=== PATIENT | female | born 1940 | race Hispanic/Latino ===

== ENCOUNTER 2017-05-01 21:50 | Inpatient (IN) | payer OTHER ==
[~2017-05-01] VITALS: Ht 154.9 cm; Wt 51.3 kg
[2017-05-01] MEDS ORDERED: VANCOMYCIN 1GM/NS 250 ML 250 ML IV ONE (22:15)
[2017-05-01] MEDS ORDERED: ONDANSETRON HCL INJ 2 MG/ML VIAL IV PRN (22:15)
[2017-05-01 22:18] VITALS: BP 152/69
[2017-05-01 22:45] VITALS: BP 152/69
[2017-05-01] MEDS ORDERED: SODIUM CHLORIDE 0.9% 250ML 250 ML ONE (22:57)
[2017-05-01] MEDS: SODIUM CHLORIDE 0.9% 1000ML 1,000 ML IV SCH (23:00)
[2017-05-02] VITALS (7 sets, daily range): BP systolic 117–150; BP diastolic 52–68
[2017-05-02] MEDS ORDERED: OMEPRAZOLE40 MG PO (03:08)
[2017-05-02] MEDS ORDERED: CETIRIZINE HCL10 MG PO (03:08)
[2017-05-02] MEDS ORDERED: LEVOTHYROXINE100 MC1 PO (03:08)
[2017-05-02] MEDS ORDERED: LOSARTAN POTAS100 MG PO (03:08)
[2017-05-02] MEDS: ALBUTEROL/IPRATROPIUM 3 ML NEB NEB PRN (04:55)
[2017-05-02] MEDS: PIPER-TAZ 3.375 GM 50 ML IV SCH ×4 (06:32→22:00)
[2017-05-02] MEDS: SODIUM CHLORIDE 0.9% 1000ML 1,000 ML IV SCH (08:15)
[2017-05-02] MEDS: OSELTAMIVIR PHOSPHATE 75 MG CAP PO SCH ×2 (09:00→16:18)
--- NOTE | 2017-05-02 11:09 | Diagnostic Imaging Report ---
EXAM: CT Chest WITHOUT contrast 05/02/2017 6:00 AM INDICATION: Positive flu\S\Pneumonia \S\[id number] \S\1008 \S\Y COMPARISON: None TECHNIQUE: Chest was scanned utilizing a multidetector helical scanner from the lung apex through the level of the adrenal glands without administration of IV contrast. Absence of intravenous contrast decreases sensitivity for detection of lymphadenopathy and vascular pathology. Coronal and sagittal reformations were obtained. Routine protocol was performed. IV CONTRAST: None COMPLICATIONS: None RADIATION DOSE: Total DLP: 330 mGy*cm Estimated effective dose: (DLP x 0.015 x size factor) mSv CTDIvol has been reviewed. It is below the limits set by the Radiation Protocol Committee (RPC). FINDINGS: LINES/ TUBES: None. LUNGS AND AIRWAYS: Parts of the pleural-based consolidation with few surrounding a smaller areas of groundglass opacities and septal thickening, better seen on series 3, image 21. The larger consolidation measures 2.9 x 1.5 cm. There are additional subcentimeter focal areas of groundglass opacities in the left upper lobe. Bibasilar consolidations with volume loss likely representing atelectasis. Right upper lobe bronchiectasis and peribronchial wall thickening. Bilateral interstitial edema. PLEURA: Small bilateral pleural effusions, right greater than left. HEART AND MEDIASTINUM: The thyroid gland is normal. No mediastinal, hilar or axillary lymphadenopathy. Cardiomegaly. There is no pericardial effusion. Severe calcifications of the mitral annulus. The main pulmonary artery is mildly enlarged measuring 3.2 cm in diameter. UPPER ABDOMEN: Cholecystectomy. BONES: Mild degenerative changes of the thoracic spine. SOFT TISSUES: Unremarkable. IMPRESSION: Bilateral upper lobes, right greater than left, focal areas of groundglass opacities with a large pleural-based part solid consolidation may relate to this patient influenza pneumonia. Recommend repeat daily chest x-ray and CT chest without contrast in 3-4 weeks. Cardiomegaly with bilateral interstitial edema and small pleural effusions. Signed by: Dr. Maria Luisa Siddiqui M.D. on 05/02/2017 11:05 AM
[2017-05-02] MEDS ORDERED: HYDRALAZINE HCL 25 MG TAB PO PRN (11:15)
--- NOTE | 2017-05-02 11:48 | History and Physical ---
CHIEF COMPLAINT: Influenza, pneumonia. HISTORY OF PRESENT ILLNESS: Patient is a very pleasant, 76-year-old female who has been ill for the past week or so. The patient has hypertension, hypothyroidism and reflux associated with also allergic rhinitis. She came to the hospital, and influenza was positive. The patient also has bibasilar pneumonia. The patient is otherwise stable. PAST MEDICAL HISTORY: Hypertension, hypothyroidism, reflux. PAST SURGICAL HISTORY: Total abdominal hysterectomy. SOCIAL HISTORY: Patient does not smoke or use alcohol. No recreational drugs. HOME MEDICATIONS: List reviewed. ALLERGIES: NO KNOWN ALLERGIES. REVIEW OF SYSTEMS: As mentioned. Cough and shortness breath. PHYSICAL EXAMINATION GENERAL: The patient is not in acute distress. He is awake. VITAL SIGNS: Temperature 98. Blood pressure 132/52. Pulse rate 80. Respirations 18. HEENT: Normocephalic, atraumatic. Sclerae are anicteric. NECK: Supple grossly. PULMONARY: Diminished breath sounds at bases with coarses. CARDIOVASCULAR: S1 and S2, regular rate and rhythm. ABDOMEN: Soft. EXTREMITIES: No cyanosis or edema. NEUROLOGIC: No focal deficit. LABORATORY: Pending. IMPRESSION 1. Influenza. 2. Bibasilar pneumonia on x-ray. 3. Shortness of breath. 4. Fever. PLAN: Nebulizer treatment and antibiotics. Continue with home medications when available. Tamiflu. We will monitor the patient closely. Job#: [id number]
[2017-05-02] MEDS: LEVOTHYROXINE SODIUM 100 MCG TAB PO SCH (13:30)
[2017-05-02] MEDS ORDERED: ENOXAPARIN SOD INJ 40 MG/0.4 ML SYR SC SCH (17:00)
--- NOTE | 2017-05-02 17:33 | Consultation ---
DATE OF CONSULTATION: May 02, 2017 PULMONARY CONSULTATION REASON FOR CONSULTATION: Shortness of breath and wheezing. HISTORY OF PRESENT ILLNESS: Ms. Chin is a 76-year-old female who presented with a 2-week history of cough and wheezing. Patient was admitted by Dr. Bassett. She reports that she has history of hypertension. As a young person, she was told that she has asthma. Dr. Bassett notes the patient was positive for influenza. The lab work was done, and it is in the chart possibly because of down time. The white count is 4000 and hemoglobin 13.7. She tested positive for flu A. She is having fevers, chills, arthralgias and myalgias. REVIEW OF SYSTEMS GENERAL: Was having fever and chills. HEAD: Denies any head trauma or head injury. ENT: Denies any earache. CVS: Denies any chest pain. RESPIRATORY: Shortness of breath and wheezing. GI: Denies any nausea or vomiting. OTHER: The rest of the review of systems are negative except as in HPI. PAST MEDICAL HISTORY: Hypertension, hypothyroidism. PAST SURGICAL HISTORY: Abdominal hysterectomy. FAMILY AND SOCIAL HISTORY: She is a lifelong nonsmoker. Does not smoke. Does not drink. PHYSICAL EXAMINATION VITALS: Temperature 99.4, pulse of 92, blood pressure 150/68, respiratory rate of 18. O2 sat 95% on 3 L. SKIN: Warm. Arthralgias, myalgias. GENERAL APPEARANCE: She is an elderly female in mild respiratory distress. GENERAL: She is awake and alert, following commands. Responding to questions appropriately. HEENT: Head is atraumatic and normocephalic. Pupils are reactive. NECK: Supple with no JVD. Thyroid not enlarged. CHEST: Wheezing bilaterally. HEART: S1 and S2 audible. ABDOMEN: Soft, nontender and nondistended. EXTREMITIES: No clubbing, cyanosis or edema. NEUROLOGIC: Awake and alert. LABORATORY DATA: Reviewed in the chart. Patient has influenza positive. CBC and BMP reviewed. CT of the chest was done, and I reviewed the films. It is showing evidence of multilobar infiltrates and pneumonia. Report shows she has bilateral upper lobe, right greater than left, ground-glass opacities. ASSESSMENT AND PLAN: A 76-year-old female with influenza and pneumonia and reactive airways. CURRENT PROBLEMS 1. Influenza and pneumonia. 2. Reactive airways. PLAN 1. Continue the patient on IV Zosyn and Tamiflu. 2. Nebulizer treatment. 3. If the patient's shortness of breath and wheezing gets worse, then we may need to add low-dose steroids. However, I will hold off on it for now. 4. Oxygen as needed. Discussed with the patient's family at bedside in detail. Thank you for this consult. Job#: [id number]
[2017-05-02] MEDS: GUAIFENESIN/CODEINE 10 ML CUP PO PRN (21:09)
[2017-05-03] VITALS (7 sets, daily range): BP systolic 105–166; BP diastolic 51–71
[2017-05-03] MEDS: ACETAMINOPHEN 325 MG TAB PO PRN ×2 (04:46→10:30)
[2017-05-03] MEDS: ALBUTEROL/IPRATROPIUM 3 ML NEB NEB PRN ×3 (04:55→19:15)
[2017-05-03] MEDS: SODIUM CHLORIDE 0.9% 1000ML 1,000 ML IV SCH ×3 (06:00→14:00)
[2017-05-03] MEDS: LEVOTHYROXINE SODIUM 100 MCG TAB PO SCH (06:01)
[2017-05-03] MEDS: PIPER-TAZ 3.375 GM 50 ML IV SCH (06:01)
[2017-05-03] MEDS ORDERED: PANTOPRAZOLE SOD 40 MG TABEC PO SCH (07:30)
[2017-05-03 07:37] LABS: BASOPHILS % 0.2 % (0.0-1.0); EOSINOPHILS % 0.2 % (0.0-6.0); HEMATOCRIT 32.2 % (34.2-44.1); HEMOGLOBIN 11.4 g/dL (12.0-16.0); LYMPHOCYTES # (AUTO) 0.9 (1.0-3.2); LYMPHOCYTES % 14.4 % (18.0-39.1); MEAN CORPUSCULAR HEMOGLOBIN 36.5 pg (28-32); MEAN CORPUSCULAR HGB CONC 35.4 g/dL (31-35); MEAN CORPUSCULAR VOLUME 103.2 fL (81-99); MONOCYTES # (AUTO) 0.7 (0.2-0.8); NEUTROPHILS # (AUTO) 4.9 (2.1-6.9); NEUTROPHILS % 74.6 % (38.7-80.0); RED BLOOD COUNT 3.12 x10e6/uL (3.6-5.1); RED CELL DISTRIBUTION WIDTH 14.5 % (11.7-14.4)
[2017-05-03 07:46] LABS: PLATELET COUNT 48 x10e3/uL (140-360)
[2017-05-03 07:52] LABS: ANION GAP 8.2 mmol/L (8-16); BLOOD UREA NITROGEN 12 mg/dL (7-26); BUN/CREATININE RATIO 15 (6-25); CALCIUM 7.5 mg/dL (8.4-10.2); CARBON DIOXIDE 18 mmol/L (22-29); CHLORIDE 113 mmol/L (98-107); CREATININE, SERUM 0.78 mg/dL (0.57-1.11); EST GLOMERULAR FILTRATION RATE > 60 ML/MIN (60-); GLUCOSE 89 mg/dL (74-118); POTASSIUM 3.2 mmol/L (3.5-5.1); SODIUM 136 mmol/L (136-145)
[2017-05-03] MEDS: LORATADINE 10 MG TAB PO SCH (09:00)
[2017-05-03] MEDS: OSELTAMIVIR PHOSPHATE 75 MG CAP PO SCH ×2 (09:00→17:00)
[2017-05-03] MEDS: GUAIFENESIN/CODEINE 10 ML CUP PO PRN ×2 (10:30→19:29)
[2017-05-03] MEDS ORDERED: POTASSIUM CHLORIDE 20 MEQ TAB CR PO ONE (14:00)
[2017-05-03] MEDS: DOXYCYCLINE HYCLATE TABLET 100 MG TAB PO SCH (17:00)
[2017-05-04] VITALS: BP 123/58
[2017-05-04 04:00] VITALS: BP 163/70
[2017-05-04] MEDS: ACETAMINOPHEN 325 MG TAB PO PRN ×2 (04:41→17:17)
[2017-05-04] MEDS: LEVOTHYROXINE SODIUM 100 MCG TAB PO SCH (06:12)
[2017-05-04 08:00] VITALS: BP 131/63
[2017-05-04 08:20] LABS: BASOPHILS % 0.2 % (0.0-1.0); EOSINOPHILS % 0.5 % (0.0-6.0); HEMATOCRIT 32.6 % (34.2-44.1); HEMOGLOBIN 11.4 g/dL (12.0-16.0); LYMPHOCYTES # (AUTO) 1.1 (1.0-3.2); LYMPHOCYTES % 16.7 % (18.0-39.1); MEAN CORPUSCULAR HEMOGLOBIN 36.2 pg (28-32); MEAN CORPUSCULAR VOLUME 103.5 fL (81-99); MONOCYTES # (AUTO) 0.6 (0.2-0.8); MONOCYTES % 8.6 % (4.4-11.3); NEUTROPHILS # (AUTO) 4.8 (2.1-6.9); NEUTROPHILS % 73.1 % (38.7-80.0); PLATELET COUNT 56 x10e3/uL (140-360); RED BLOOD COUNT 3.15 x10e6/uL (3.6-5.1); RED CELL DISTRIBUTION WIDTH 14.5 % (11.7-14.4)
[2017-05-04 08:41] LABS: BLOOD UREA NITROGEN 13 mg/dL (7-26); BUN/CREATININE RATIO 18 (6-25); CALCIUM 7.6 mg/dL (8.4-10.2); CARBON DIOXIDE 20 mmol/L (22-29); CHLORIDE 111 mmol/L (98-107); CREATININE, SERUM 0.72 mg/dL (0.57-1.11); EST GLOMERULAR FILTRATION RATE > 60 ML/MIN (60-); GLUCOSE 85 mg/dL (74-118); SODIUM 136 mmol/L (136-145)
[2017-05-04] MEDS: OSELTAMIVIR PHOSPHATE 75 MG CAP PO SCH ×2 (09:09→17:17)
[2017-05-04] MEDS: DOXYCYCLINE HYCLATE TABLET 100 MG TAB PO SCH ×2 (09:09→17:17)
[2017-05-04] MEDS: LORATADINE 10 MG TAB PO SCH (09:09)
[2017-05-04] MEDS: ALBUTEROL/IPRATROPIUM 3 ML NEB NEB PRN ×2 (09:44→14:37)
[2017-05-04 12:00] VITALS: BP 133/62
[2017-05-04 16:00] VITALS: BP 134/62
[2017-05-04 20:00] VITALS: BP 156/76
[2017-05-04] MEDS: GUAIFENESIN/CODEINE 10 ML CUP PO PRN (20:31)
[2017-05-05] VITALS (8 sets, daily range): BP systolic 113–150; BP diastolic 55–103
[2017-05-05] MEDS: ALBUTEROL/IPRATROPIUM 3 ML NEB NEB PRN ×2 (01:30→11:12)
[2017-05-05] MEDS: LEVOTHYROXINE SODIUM 100 MCG TAB PO SCH (05:14)
[2017-05-05 06:48] LABS: BASOPHILS % 0.2 % (0.0-1.0); EOSINOPHILS # (AUTO) 0.1 (0.0-0.4); EOSINOPHILS % 0.8 % (0.0-6.0); HEMOGLOBIN 10.9 g/dL (12.0-16.0); LYMPHOCYTES # (AUTO) 1.2 (1.0-3.2); LYMPHOCYTES % 19.3 % (18.0-39.1); MEAN CORPUSCULAR HEMOGLOBIN 36.5 pg (28-32); MEAN CORPUSCULAR HGB CONC 35.2 g/dL (31-35); MEAN CORPUSCULAR VOLUME 103.7 fL (81-99); MONOCYTES # (AUTO) 0.7 (0.2-0.8); MONOCYTES % 11.3 % (4.4-11.3); NEUTROPHILS # (AUTO) 4.3 (2.1-6.9); NEUTROPHILS % 68.1 % (38.7-80.0); PLATELET COUNT 58 x10e3/uL (140-360); RED BLOOD COUNT 2.99 x10e6/uL (3.6-5.1); RED CELL DISTRIBUTION WIDTH 14.3 % (11.7-14.4)
[2017-05-05 07:10] LABS: ANION GAP 9.8 mmol/L (8-16); BLOOD UREA NITROGEN 14 mg/dL (7-26); BUN/CREATININE RATIO 21 (6-25); CALCIUM 8.1 mg/dL (8.4-10.2); CARBON DIOXIDE 20 mmol/L (22-29); CHLORIDE 113 mmol/L (98-107); CREATININE, SERUM 0.67 mg/dL (0.57-1.11); EST GLOMERULAR FILTRATION RATE > 60 ML/MIN (60-); GLUCOSE 88 mg/dL (74-118); POTASSIUM 3.8 mmol/L (3.5-5.1); SODIUM 139 mmol/L (136-145)
[2017-05-05] MEDS: LORATADINE 10 MG TAB PO SCH (09:11)
[2017-05-05] MEDS: DOXYCYCLINE HYCLATE TABLET 100 MG TAB PO SCH ×2 (09:11→16:25)
[2017-05-05] MEDS: GUAIFENESIN/CODEINE 10 ML CUP PO PRN ×2 (09:11→09:15)
[2017-05-05] MEDS: OSELTAMIVIR PHOSPHATE 75 MG CAP PO SCH ×2 (09:11→16:25)
--- NOTE | 2017-05-05 14:32 | Diagnostic Imaging Report ---
EXAMINATION: PA and lateral views of the chest. COMPARISON: CT chest 05/02/2017 CLINICAL HISTORY: Pneumonia, flu DISCUSSION: Lines/tubes: None. Lungs: Lungs are well-inflated. Interval development of patchy airspace opacities in the left upper lobe, and worsening of airspace opacities in the right upper lobe, likely representing multifocal pneumonia. Worsening atelectatic changes in the left lower lobe. Pleura: Left-sided pleural effusion. Questionable small right-sided pleural effusion. Heart and mediastinum: Stable mild cardiomegaly. Prominent bilateral pulmonary arteries Bones and soft tissues: No acute bony abnormalities. Degenerative changes in the thoracic spine IMPRESSION: Worsening airspace opacities in the right upper lobe and interval development of airspace opacity in the left upper lobe, likely reflecting multifocal pneumonia. Left-sided pleural effusion and associated atelectasis. Questionable small right-sided pleural effusion. Signed by: Dr. Alf Choi M.D. on 05/05/2017 2:28 PM
[2017-05-05 14:44] LABS: ABG HCO3 18 mmol/L (23-28); ABG PCO2 29 mmHg (41-51); ABG PH 7.39 (7.31-7.41); ABG PO2 63 mmHg (80-105)
[2017-05-05] MEDS: ALBUTEROL/IPRATROPIUM 3 ML NEB NEB SCH ×2 (15:00→19:30)
[2017-05-05] MEDS: ACETAMINOPHEN 325 MG TAB PO PRN (16:25)
[2017-05-05] MEDS ORDERED: VANCOMYCIN 500MG/NS 0.9% 100ML 100 ML IV SCH (16:30)
[2017-05-05] MEDS: PREDNISONE 20 MG TAB PO SCH (17:11)
[2017-05-05] MEDS: CEFEPIME HCL 1 GM VIAL IV SCH (17:12)
[2017-05-05 17:35] LABS: ALBUMIN 2.3 g/dL (3.5-5.0); BILIRUBIN,DIRECT 1.6 mg/dL (0.0-5.0)
[2017-05-05] MEDS: VANCOMYCIN 500MG/NS 0.9% 100ML 100 ML IV SCH (20:33)
[2017-05-06] MEDS: ALBUTEROL/IPRATROPIUM 3 ML NEB NEB SCH ×7 (00:30→23:37)
[2017-05-06 04:00] VITALS: BP 115/53
[2017-05-06] MEDS: LEVOTHYROXINE SODIUM 100 MCG TAB PO SCH (06:29)
[2017-05-06] MEDS: CEFEPIME HCL 1 GM VIAL IV SCH ×2 (06:29→16:43)
[2017-05-06] MEDS: VANCOMYCIN 500MG/NS 0.9% 100ML 100 ML IV SCH ×2 (08:01→20:09)
[2017-05-06] MEDS: LORATADINE 10 MG TAB PO SCH (08:01)
[2017-05-06] MEDS: DOXYCYCLINE HYCLATE TABLET 100 MG TAB PO SCH ×2 (08:01→16:43)
[2017-05-06] MEDS: OSELTAMIVIR PHOSPHATE 75 MG CAP PO SCH ×2 (08:01→16:43)
[2017-05-06] MEDS: PREDNISONE 20 MG TAB PO SCH (08:01)
[2017-05-06 08:25] VITALS: BP 116/51
[2017-05-06] MEDS: GUAIFENESIN/CODEINE 10 ML CUP PO PRN ×2 (10:34→16:43)
[2017-05-06 11:00] VITALS: BP 126/57
--- NOTE | 2017-05-06 16:05 | Diagnostic Imaging Report ---
EXAM: Liver Ultrasound INDICATION: \S\macrocytosis \S\[id number] \S\1332 COMPARISON: Chest radiograph 05/05/[address] 05/02/2017 TECHNIQUE: Transverse and longitudinal images of the liver were obtained. FINDINGS: Liver: Size: 9.7 cm in the right midclavicular line, decreased in size Appearance: Coarsened echogenicity, nodular contour Mass: No focal masses Gallbladder: Stones/Sludge: None Wall: 0.3 cm Appearance: No pericholecystic fluid or hydrops. Sonographic Brown's Sign: Negative Bile Ducts: Intrahepatic Ducts: No dilatation Extrahepatic Ducts: Common bile duct measures 0.6 cm, within normal limits for age Pancreas: Visualized portions of the pancreatic head, neck and proximal body are normal. Right Kidney: Size: 7.5 cm Echogenicity: Normal Parenchymal thickness: Normal Collecting system: No hydronephrosis Stones: None Cyst/Mass: None Vessels: Aorta: Atherosclerotic calcifications Inferior Vena Cava: Visualized portions are normal Main Portal Vein: 0.7 cm, normal size with hepatopetal flow. Hepatofugal flow of the splenic vein near the portal confluence. Recanalized umbilical vein better seen on recent chest CT. Free Fluid: No ascites. Small right pleural effusion IMPRESSION: Cirrhosis with portal hypertensive changes including reversal of flow near the portal confluence and recanalized umbilical vein. Signed by: DR. Fracisco Martínez MD on 05/06/2017 4:01 PM
[2017-05-06 16:14] VITALS: BP 119/54
[2017-05-06 20:50] VITALS: BP 117/56
[2017-05-07] VITALS: BP 116/61
[2017-05-07] MEDS: ALBUTEROL/IPRATROPIUM 3 ML NEB NEB SCH ×3 (03:24→10:47)
[2017-05-07 04:45] VITALS: BP 117/60
[2017-05-07] MEDS: CEFEPIME HCL 1 GM VIAL IV SCH (04:52)
[2017-05-07] MEDS: LEVOTHYROXINE SODIUM 100 MCG TAB PO SCH (05:19)
[2017-05-07] MEDS: GUAIFENESIN/CODEINE 10 ML CUP PO PRN (07:10)
[2017-05-07 07:17] LABS: BASOPHILS % 0.1 % (0.0-1.0); EOSINOPHILS % 0.4 % (0.0-6.0); HEMATOCRIT 28.5 % (34.2-44.1); HEMOGLOBIN 10.1 g/dL (12.0-16.0); LYMPHOCYTES # (AUTO) 1.3 (1.0-3.2); LYMPHOCYTES % 12.4 % (18.0-39.1); MEAN CORPUSCULAR HEMOGLOBIN 36.3 pg (28-32); MEAN CORPUSCULAR HGB CONC 35.4 g/dL (31-35); MEAN CORPUSCULAR VOLUME 102.5 fL (81-99); MONOCYTES # (AUTO) 0.9 (0.2-0.8); MONOCYTES % 8.2 % (4.4-11.3); NEUTROPHILS # (AUTO) 8.3 (2.1-6.9); NEUTROPHILS % 78.5 % (38.7-80.0); PLATELET COUNT 82 x10e3/uL (140-360); RED BLOOD COUNT 2.78 x10e6/uL (3.6-5.1); RED CELL DISTRIBUTION WIDTH 14.4 % (11.7-14.4)
[2017-05-07 07:40] LABS: ANION GAP 10.1 mmol/L (8-16); BLOOD UREA NITROGEN 18 mg/dL (7-26); BUN/CREATININE RATIO 24 (6-25); CALCIUM 8.6 mg/dL (8.4-10.2); CARBON DIOXIDE 20 mmol/L (22-29); CHLORIDE 112 mmol/L (98-107); CREATININE, SERUM 0.75 mg/dL (0.57-1.11); EST GLOMERULAR FILTRATION RATE > 60 ML/MIN (60-); GLUCOSE 97 mg/dL (74-118); POTASSIUM 4.1 mmol/L (3.5-5.1); SODIUM 138 mmol/L (136-145)
[2017-05-07 08:10] VITALS: BP 127/57
[2017-05-07] MEDS: DOXYCYCLINE HYCLATE TABLET 100 MG TAB PO SCH (08:49)
[2017-05-07] MEDS: LORATADINE 10 MG TAB PO SCH (08:49)
[2017-05-07] MEDS: OSELTAMIVIR PHOSPHATE 75 MG CAP PO SCH (08:49)
[2017-05-07] MEDS: PREDNISONE 20 MG TAB PO SCH (08:49)
[2017-05-07] MEDS: VANCOMYCIN 500MG/NS 0.9% 100ML 100 ML IV SCH (08:55)
[2017-05-07] MEDS ORDERED: DUONEB (10:05)
[2017-05-07] MEDS ORDERED: DOXYCYCLINE MO100 MG PO (10:07)
[2017-05-07] MEDS ORDERED: [UNRECOGNIZED DRUG - OTHER] (10:08)
[2017-05-07] MEDS ORDERED: CHERATUSSIN AC118 ML PO (10:09)
[2017-05-07] MEDS ORDERED: CLARITIN-D 121 EACH PO (10:10)
--- NOTE | 2017-06-18 10:40 | Discharge Summary ---
FINAL DIAGNOSES 1. Community-acquired pneumonia. 2. Influenza. 3. Dehydration. 4. Electrolyte disorder secondary to the above. SUMMARY: Patient is a 76-year-old female who came in with influenza and community-acquired pneumonia. The patient at baseline with liver cirrhosis. She is on multiple diuretics at home. Because of her urine, as she was unable to have adequate intake, the patient became dehydrated with electrolyte disorder due to diuretic. Patient is stable. She was treated. She was receiving IV fluids with rehydration and electrolyte correction and subsequently antibiotics with Tamiflu. She did better. Patient is subsequently discharged home with medications. Please review the medications on discharge. Patient is stable. Discharged home. Follow up with her family doctor within a week. Job#: [id number] [facility]
== END 2017-05-07 10:43 | disposition home or self-care (01) | DRG 195 ==
LOC: MED/SURG2 22:08
PROVIDERS: ADMIT Internal Medicine; ATTEND Internal Medicine
DX: J09.X1 Influenza due to identified novel influenza A virus with pneumonia (principal); J18.9 Pneumonia, unspecified organism; E86.0 Dehydration; K74.60 Unspecified cirrhosis of liver; E87.8 Other disorders of electrolyte and fluid balance, not elsewhere classified; I10 Essential (primary) hypertension; E03.9 Hypothyroidism, unspecified; T50.2X5A Adverse effect of carbonic-anhydrase inhibitors, benzothiadiazides and other diuretics, initial encounter; K21.9 Gastro-esophageal reflux disease without esophagitis; J30.9 Allergic rhinitis, unspecified; J45.909 Unspecified asthma, uncomplicated
CPT/HCPCS: 36415; 36600; 71046; 71250; 76705; 80048; 80076; 80202; 82607; 82746; 82805; 83036; 83090; 83880; 84443; 85025; 87040; 87070; 87186; 87205; 94640; J0692; J1650; J2405; J2543; J3370; J7030; J7050